=== PATIENT | female | born 1970 | race Caucasian/White ===

== ENCOUNTER 2020-02-13 03:39 | Inpatient (IN) | payer MEDICAID ==
[~2020-02-13] VITALS: Ht 175.3 cm; Wt 82.8 kg
[2020-02-13 04:41] LABS: EOSINOPHILS % 3.8 % (0.0-5.0); HEMATOCRIT. 36.5 % (36.0-48.0); HEMOGLOBIN. 12.2 g/dL (12.0-16.0); LYMPHOCYTES % 24.4 % (20.0-50.0); MEAN CORPUSCULAR HEMOGLOBIN 31.8 pg (28.0-32.0); MEAN CORPUSCULAR VOLUME 95.4 fL (81.0-99.0); MEAN PLATELET VOLUME 7.2 fl (7.4-10.4); MONOCYTES % 6.7 % (2.0-8.0); NEUTROPHILS % 64.1 % (40.0-76.0); PLATELET 334 x1000/uL (130-400); RED BLOOD CELL COUNT 3.83 mill/uL (4.2-5.4); RED CELL DISTRIBUTION WIDTH 13.7 % (11.6-14.6)
[2020-02-13] MEDS ORDERED: ALBUTEROL 6.7GM HFA INHALER ORI ONE (04:45)
[2020-02-13] MEDS ORDERED: PREDNISONE 20MG TABLET PO ONE (04:45)
[2020-02-13] MEDS ORDERED: DOXYCYCLINE HYCLATE 100 MG/VIAL IV ONE (04:45)
[2020-02-13 04:49] LABS: CHLORIDE 108 mEq/L (98-107)
[2020-02-13] MEDS ORDERED: DOXYCYCLINE 100MG in DEXTROSE 5% WATER 100ML IV SCH (05:15)
[2020-02-13 09:30] VITALS: BP 117/76
[2020-02-13] MEDS ORDERED: ONDANSETRON HCL 4MG/2ML INJ IV PRN (11:00)
[2020-02-13] MEDS: METHYLPREDNISOLONE SOD SUCC 40 MG/ML VIAL IV SCH ×2 (11:19→17:11)
[2020-02-13] MEDS: ENOXAPARIN 40MG/0.4ML SYR SUBCUT SCH (11:19)
[2020-02-13] MEDS: AMLODIPINE 10MG TABLET PO SCH (11:19)
[2020-02-13 12:00] VITALS: BP 149/86
[2020-02-13 16:00] VITALS: BP 123/76
[2020-02-13] MEDS ORDERED: ALBUTEROL 6.7GM HFA INHALER ORI SCH (16:30)
[2020-02-13 16:46] LABS: METHADONE URINE SCREEN NEGATIVE (NEGATIVE); OPIATES URINE SCREEN NEGATIVE (NEGATIVE)
[2020-02-13 16:47] LABS: *AMPHETAMINES SCREEN URINE PRESUMTIVE POSITIVE (NEGATIVE); *BARBITURATES SCREEN URINE NEGATIVE (NEGATIVE); *BENZODIAZEPINES SCREEN URINE NEGATIVE (NEGATIVE); CANNABINOID URINE SCREEN NEGATIVE (NEGATIVE); PHENCYCLIDINE URINE SCREEN NEGATIVE (NEGATIVE)
[2020-02-13 16:48] LABS: *COCAINE SCREEN URINE NEGATIVE (NEGATIVE)
[2020-02-13] MEDS: MULTIVITAMINS,THER W-MINERALS TABLET PO SCH (17:11)
[2020-02-13] MEDS: THIAMINE HCL 100MG TABLET PO SCH (17:11)
[2020-02-13] MEDS: FOLIC ACID 1MG TABLET PO SCH (17:11)
[2020-02-13 20:00] VITALS: BP 116/74
[2020-02-14] MEDS: METHYLPREDNISOLONE SOD SUCC 40 MG/ML VIAL IV SCH ×2 (03:41→10:55)
[2020-02-14] MEDS: ACETAMINOPHEN 325MG TABLET PO PRN ×2 (03:48→12:36)
[2020-02-14 04:00] VITALS: BP 136/82
[2020-02-14 08:00] VITALS: BP 144/87
[2020-02-14] MEDS: AMLODIPINE 10MG TABLET PO SCH (08:22)
[2020-02-14] MEDS: FOLIC ACID 1MG TABLET PO SCH (08:22)
[2020-02-14] MEDS: THIAMINE HCL 100MG TABLET PO SCH (08:22)
[2020-02-14] MEDS: MULTIVITAMINS,THER W-MINERALS TABLET PO SCH (08:22)
[2020-02-14] MEDS: ALBUTEROL (0.083%) 2.5MG/3ML NEB HHN SCH ×2 (09:01→13:00)
[2020-02-14] MEDS: ENOXAPARIN 40MG/0.4ML SYR SUBCUT SCH (10:55)
[2020-02-14 12:00] VITALS: BP 126/78
[2020-02-14 16:00] VITALS: BP 146/78
[2020-02-14] MEDS ORDERED: IPRATROPIUM/ALBUTEROL 0.5-3(2.5)MG/3ML NEB HHN PRN (17:00)
[2020-02-14 20:24] VITALS: BP 143/83
[2020-02-15 00:13] VITALS: BP 126/74
[2020-02-15 04:00] VITALS: BP 127/81
[2020-02-15 08:00] VITALS: BP 129/84
[2020-02-15] MEDS: FOLIC ACID 1MG TABLET PO SCH (08:25)
[2020-02-15] MEDS: MULTIVITAMINS,THER W-MINERALS TABLET PO SCH (08:25)
[2020-02-15] MEDS: THIAMINE HCL 100MG TABLET PO SCH (08:25)
[2020-02-15] MEDS: AMLODIPINE 10MG TABLET PO SCH (08:26)
[2020-02-15 11:30] VITALS: BP 118/75
== END 2020-02-15 12:10 | disposition left against medical advice (07) | DRG 140 ==
LOC: ER 03:39 → ENRESERV 07:33 → 8WST 09:40 → 7WST 10:32 → 6WST 02-14 01:04
PROVIDERS: ADMIT Internal Medicine; ATTEND Internal Medicine
DX: J44.1 Chronic obstructive pulmonary disease with (acute) exacerbation (principal); E87.8 Other disorders of electrolyte and fluid balance, not elsewhere classified; F10.10 Alcohol abuse, uncomplicated; Z53.29 Procedure and treatment not carried out because of patient's decision for other reasons; F17.210 Nicotine dependence, cigarettes, uncomplicated; Z20.828 Contact with and (suspected) exposure to other viral communicable diseases; Z90.49 Acquired absence of other specified parts of digestive tract; Z71.6 Tobacco abuse counseling
CPT/HCPCS: 36415; 71045; 80053; 80305; 82962; 83735; 83880; 84145; 84484; 85025; 93005; 94640; 99285; J1650; J2920; J3490; J7060; J7512; U0003-CS